=== PATIENT | female | born 1975 | race Caucasian/White ===

== ENCOUNTER 2019-04-08 15:32 | Emergency (ER) | payer OTHER ==
[~2019-04-08] VITALS: Ht 160 cm; Wt 83.9 kg
[2019-04-08] MEDS ORDERED: DEXAMETHASONE 4 MG TABLET PO ONE (16:00)
[2019-04-08] MEDS ORDERED: IPRATRPIUM/ALBUTEROL 0.5/2.5MG 3 ML NEBU. NEB ONE (16:00)
[2019-04-08] MEDS ORDERED: IBUPROFEN 400 MG TABLET. PO ONE (16:15)
[2019-04-08] MEDS ORDERED: PRED20TA PO (16:47)
[2019-04-08] MEDS ORDERED: ALBU2.5V8 IH (16:47)
--- NOTE | 2019-04-08 16:48 | PHYS DOC ---
Past History Past Medical History: Asthma Past Surgical History: No Surgical History Smoking: Cigarettes Alcohol Use: Occasionally Drug Use: None Adult General Chief Complaint Chief Complaint: SHORTNESS OF BREATH HPI HPI 43 year old female with past medical history of asthma presents with report of shortness of breath after inhaling mixture of bleach and toilet cleaning product just prior to arrival. Patient reports she was having problems breathing but ended up staying in room to finish cleaning. Reports symptoms continued and therefore presented to urgent care. Urgent care reported pulse ox on RA was "82%" and sent patient by private vehicle to ED. Patient reports symptoms have since improved. Denies tongue swelling. Denies leg swelling or calf tenderness. Reports history of smoking. Denies nasal congestion. Denies fever/chills. Review of Systems Review of Systems Constitutional: Denies fever or chills Eyes: Denies change in visual acuity, redness, or eye pain HENT: Denies nasal congestion or sore throat Respiratory: Reports cough and shortness of breath Cardiovascular: Denies chest pain or palpitations GI: Denies abdominal pain, nausea, vomiting, or diarrhea : Denies dysuria or hematuria Musculoskeletal: Denies back pain or joint pain Integument: Denies rash or skin lesions Neurologic: Denies headache, focal weakness or sensory changes Complete systems were reviewed and found to be within normal limits, except as documented in this note. Current Medications Current Medications Current Medications Medications (Trade) Dose Ordered Sig/Marissa Start Time Stop Time Status Last Admin Dose Admin Albuterol/ Ipratropium (Duoneb) 3 ml 1X ONCE 04/08/19 16:00 04/08/19 16:37 DC 04/08/19 16:28 3 ML Dexamethasone (Decadron) 10 mg 1X ONCE 04/08/19 16:00 04/08/19 16:37 DC 04/08/19 16:28 10 MG Ibuprofen (Motrin) 400 mg 1X ONCE 04/08/19 16:15 04/08/19 16:37 DC 04/08/19 16:27 400 MG Allergies Allergies Allergies Coded Allergies Type Severity Reaction Last Updated Verified No Known Drug Allergies 04/08/19 No Physical Exam Physical Exam Constitutional: Well developed, well nourished, no acute distress, non-toxic sharon earance HENT: Normocephalic, atraumatic, oropharynx moist, nose normal, tongue normal, no stridor Eyes: Conjunctiva normal, no discharge Neck: Normal range of motion, no tenderness, supple, no meningeal signs Cardiovascular: Heart rate normal and regular rhythm Lungs & Thorax: Bilateral breath sounds equal, no respiratory distress, scattered wheezes Skin: Warm, dry, no erythema, no rash Extremities: No tenderness, ROM intact, no edema Neurologic: Alert and oriented X 3, no focal deficits noted Psychologic: Affect normal, judgement normal EKG EKG [] Radiology/Procedures Radiology/Procedures [] Course & Med Decision Making Course & Med Decision Making Patient presents with HPI and physical exam consistent or inhalation of noxious fumes causing some asthma exacerbation. Sat stable upon arrival. No respiratory distress. Symptomatic treatment provided with respiratory neb and oral steroid. Patient with interval improvement. Patient stable for discharge home with outpatient follow-up with PCP. Discussed findings and plan with patient and friend, who acknowledge understanding and agreement. Romaine Disclaimer Dragon Disclaimer This electronic medical record was generated, in whole or in part, using a voice recognition dictation system. Departure Departure: Impression: Primary Impression: Asthma exacerbation Additional Impression: Inhalation of cleaning agent Disposition: 01 HOME, SELF-CARE Condition: IMPROVED Referrals: PCP,NO (PCP) Patient Instructions: Asthma, Adult, [id number], Chemical Inhalation Scripts Albuterol Sulfate (ALBUTEROL SULFATE NEB SOLN) 1.25 Mg/3 Ml Vial.neb 1 VIAL NEB Q4-6HRS PRN for WHEEZING, #75 ML Prov: VIKA SALCIDO DO 04/08/19 Prednisone (PREDNISONE) 20 Mg Tablet 2 TAB PO DAILY for Bronchitis, #8 TAB Prov: VIKA SALCIDO DO 04/08/19 Albuterol Sulfate (PROAIR HFA INHALER) 8.5 Gm Hfa.aer.ad 2 PUFF IH PRN Q4-6HRS PRN for wheezing for 21 Days, #1 INHALER 0 Refills Prov: VIKA SALCIDO DO 04/08/19 Problem Qualifiers Primary Impression: Asthma exacerbation Asthma severity: mild Asthma persistence: intermittent Qualified Codes: J45.21 - Mild intermittent asthma with (acute) exacerbation Additional Impression: Inhalation of cleaning agent Encounter type: initial encounter Injury intent: accidental or unintentional Qualified Codes: T59.891A - Toxic effect of other specified gases, fumes and vapors, accidental (unintentional), initial encounter VIKA SALCIDO DO Apr 08, 2019 16:48
[2019-04-08] MEDS ORDERED: ALBU1.25 NEB (16:50)
[2019-04-08 16:59] VITALS: BP 139/84
== END 2019-04-08 16:58 | disposition home or self-care (01) ==
LOC: ER 15:32
DX: J45.21 Mild intermittent asthma with (acute) exacerbation (principal); T59.891A Toxic effect of other specified gases, fumes and vapors, accidental (unintentional), initial encounter; Y92.89 Other specified places as the place of occurrence of the external cause
CPT/HCPCS: 94640; 99283; J7620; J8540